=== PATIENT | male | born 1990 | race Caucasian/White ===

== ENCOUNTER 2018-06-03 22:35 | Emergency (ER) | payer BC, OTHER ==
[~2018-06-03] VITALS: Ht 188 cm; Wt 86.2 kg
[2018-06-03 22:50] VITALS: BP 149/90
--- NOTE | 2018-06-04 00:24 | NUR ---
CALLED PT IN [place], NO RESPONSE
== END 2018-06-04 00:56 | disposition left against medical advice (07) ==
LOC: ER 22:38
DX: Z53.21 Procedure and treatment not carried out due to patient leaving prior to being seen by health care provider (principal)
CPT/HCPCS: A4606; Z7610